=== PATIENT | female | born 1955 | race Caucasian/White ===

== ENCOUNTER 2017-04-23 18:13 | Inpatient (IN) ==
[2017-04-23] MEDS ORDERED: *HR* FentaNYL (PF) 100 MCG/2 ML VIAL IVP ONE ×2 (18:26→19:19)
[2017-04-23] MEDS ORDERED: MethylPREDNISolone 40 MG/ML VIAL IVP ONE (18:29)
--- NOTE | 2017-04-23 18:29 | Emergency Department Note ---
Disposition Clinical Impression: Hip pain Qualifiers: Laterality: right Qualified Code(s): M25.551 - Pain in right hip Hip fracture Qualifiers: Encounter type: initial encounter Fracture type: closed Laterality: right Qualified Code(s): S72.001A - Fracture of unspecified part of neck of right femur, initial encounter for closed fracture Disposition: Home, Self-Care Condition: Fair Referrals: Cipriano Walsh MD [Family Provider] - [facility] [Provider Group] Forms: ED Satisfaction Letter Time of Disposition: 19:15 General Adult HPI - General Chief complaint: ED Extremity Problem,Nontraumatic Stated complaint: right hip pain Time Seen by Provider: 04/23/17 18:20 Source: patient, EMS Mode of arrival: ambulatory Limitations: no limitations Nursing Notes Reviewed: Yes Vital Signs Reviewed: Yes - History of Present Illness HPI Narrative: 60-year-old female transferred evaluation of atraumatic right hip pain. Patient states she said chronic right hip pain over several months but has worsened acutely in the past 2-3 days. Patient states she has never been able to bear weight on her right hip over several months has had a repeat CAT scan obtained approximately a year ago. Patient notes pain is primarily in the inner hip worse with movement. Patient denies any radiation of pain down the lower leg. Patient denies any pain in the back does have some moderate pain on the lateral aspect of the right hip. Denies any other symptoms. No fevers or cough. No abdominal pain. No nausea vomiting. Patient been taking anti- inflammatories to help with the pain. Reports also chronic knee pain. Denies any history of autoimmune disease or steroid use. Pain Scale: 5 - Related Data Home Medications Medication Instructions Recorded Confirmed Buspirone HCl [Buspar] 10 mg PO BID PRN 04/23/17 04/23/17 Calcium Carb/Vitamin D3/Vit K1 1 each PO DAILY 04/23/17 04/23/17 [Calcium + D Soft Chewable Tab] Cholecalciferol (D-3) [Vitamin D] 1,000 unit PO DAILY 04/23/17 04/23/17 Estrogens, Conjugated [Premarin] 0.625 mg PO DAILY 04/23/17 04/23/17 Glucosamine/D3/Boswellia Vanesa 1 each PO BID 04/23/17 04/23/17 [Osteo Bi-Flex Tablet] Loratadine [Claritin] 10 mg PO DAILY 04/23/17 04/23/17 Losartan/Hydrochlorothiazide 1 each PO DAILY 04/23/17 04/23/17 [Hyzaar 100-12.5 Tablet] Meloxicam [Mobic] 15 mg PO DAILY PRN 04/23/17 04/23/17 Naproxen Sodium [Aleve] 440 mg PO BID 04/23/17 04/23/17 Paroxetine [Paxil] 30 mg PO DAILY 04/23/17 04/23/17 Potassium Chloride [K-Tab ER] 20 meq PO TID 04/23/17 04/23/17 Pregabalin [Lyrica] 100 mg PO TID 04/23/17 04/23/17 Allergies Allergy/AdvReac Type Severity Reaction Status Date / Time nitrofurantoin Allergy Anaphylaxis Verified 04/23/17 18:27 [From Macrobid] Penicillins [PCN] Allergy Anaphylaxis Verified 04/23/17 18:27 All systems ED: reviewed and negative except as stated. Constitutional: Reports: as per HPI. Denies: fever Eyes: Reports: as per HPI ENT ED: Reports: as per HPI Cardiovascular: Reports: as per HPI. Denies: chest pain Respiratory: Reports: as per HPI. Denies: cough Gastrointestinal: Reports: as per HPI Genitourinary: Reports: as per HPI. Denies: dysuria Musculoskeletal: Reports: as per HPI. Denies: back pain Integumentary: Reports: as per HPI Neurological: Reports: as per HPI. Denies: headache Psychiatric: Reports: as per HPI Endocrine: Reports: as per HPI Hematological/Lymphatic: Reports: as per HPI Allergic/Immunologic: Reports: as per HPI Past Medical History - Past Medical History Source: patient Medical history: Reports: hypertension Psychiatric history: Reports: anxiety, depression - Social History Smoking Status: Never smoker Smokeless Tobacco Status: No Alcohol use: Reports: none Drug use: Reports: none Physical Exam - General Limitations: no limitations General appearance: alert, in no apparent distress - Head Head exam: atraumatic, normocephalic, normal inspection - Eye Eye exam: Present: normal appearance, PERRL, EOMI - ENT ENT exam: normal exam, mucous membranes moist - Neck Neck exam: Present: normal inspection - Chest Chest inspection: Present: normal inspection - Respiratory Respiratory exam: Present: normal lung sounds bilaterally. Absent: respiratory distress - Cardiovascular Cardiovascular exam: Present: regular rate, normal rhythm - Abdominal Exam Abdominal exam: Present: soft, Non-Tender - Extremities Exam Extremities exam: Present: normal inspection - Expanded Lower Extremity Exam Hip/Pelvis exam: Present: normal inspection, tenderness (Along the anterior aspect as well as medial aspect of the right hip.). Absent: full ROM, swelling , abrasion, external rotation, internal rotation, shortening Upper leg exam: Present: normal inspection. Absent: tenderness Knee exam: Present: normal inspection. Absent: tenderness, swelling, abrasion Lower leg exam: Present: normal inspection Ankle exam: Present: normal inspection Foot/toe exam: Present: normal inspection Neurovascular/Tendon exam: Present: normal capillary refill. Absent: pulse deficit, motor deficit, sensory deficit - Back Exam Back exam: Present: normal inspection - Neurological Exam Neurological exam: Present: alert, oriented X3 - Skin Skin exam: Present: warm, dry, intact, normal color Course Course Narrative: Patient seen and examined. Patient's in no acute distress but does appear uncomfortable. Patient will get CT imaging of the hip as well as appropriate pain control. Disposition pending. - Reevaluation(s) Reevaluation #1: Patient seen and examined. Patient noted some relief of the pain was still notes persistent pain. We will give sub-social dose of ketamine for complete resolution. Awaiting CT images. Time: 19:14 Reevaluation #2: Radiologist interprets the findings of the right femoral neck fracture. Patient will get preoperative basic labs including EKG. Patient will be admitted to the hospital service with orthopedic consult. Patient is neurovascularly intact distal to the extremity. Time: 19:31 - Consultations Consultation #1: Spoke with orthopedics and made aware of the patient. We will admit to the hospitalist. Time: 19:37 Vital Signs Temperature 98.3 F 04/23/17 18:18 Pulse Rate 84 04/23/17 18:18 Respiratory Rate 16 04/23/17 18:18 Blood Pressure 170/101 04/23/17 18:18 O2 Sat by Pulse Oximetry 100 04/23/17 18:18 Temperature 98.3 F 04/23/17 18:18 Pulse Rate 84 04/23/17 18:18 Respiratory Rate 16 04/23/17 18:18 Blood Pressure 170/101 04/23/17 18:18 O2 Sat by Pulse Oximetry 100 04/23/17 18:18 Oxygen Delivery Oxygen Delivery Room Air Medical Decision Making - MDM Narrative Medical decision making narrative: Patient presents with atraumatic right hip pain. Patient initially received fentanyl as well as a CT of the pelvis. CT of pelvis did reveal a femoral neck fracture. Patient's neurovascular intact. Patient received several doses of fentanyl as well as ketamine. Patient received preoperative basic lab work as well as EKG. Patient case discussed with the orthopedics who recommend admit to the hospitalist. Patient will likely require operative intervention. Discussed case with the hospitalist who accepted the patient. - Lab Data Result diagrams: 04/23/17 19:34 04/23/17 19:34 Lab Results 04/23/17 04/23/17 04/23/17 Range/Units 19:34 19:34 19:34 WBC 8.8 (4.3-11.1) K/mcL RBC 4.39 (3.82-4.97) M/mcL Hgb 11.2 L (11.5-15.4) g/dL Hct 37.0 (35.3-44.9) % MCV 84.3 (83.0-100.0) fL MCH 25.5 L (28.0-33.3) pg MCHC 30.3 L (31.6-35.5) g/dL RDW 13.9 (11.5-14.5) % Plt Count 254 (140-400) K/mcL MPV 12.1 (9.4-12.4) fL Immature Gran % 0.3 (0-4) % Seg Neutrophils % 74.7 % Lymphocytes % 15.6 % Monocytes % 8.5 % Eosinophils % 0.6 % Basophils % 0.3 % Neutrophils # 6.6 (1.6-8.9) K/mcL Lymphocytes # 1.4 (0.6-4.6) K/mcL Monocytes # 0.8 (0.0-1.3) K/mcL Eosinophils # 0.1 (0.0-0.6) K/mcL Basophils # 0.0 (0.0-0.2) K/mcL Sodium 140 (136-145) mEq/L Potassium 3.5 (3.5-5.1) mEq/L Chloride 106 (98-107) mEq/L Carbon Dioxide 25 (23-29) mEq/L BUN 12 (8-23) mg/dL Creatinine 0.57 L (0.60-1.20) mg/dL Est GFR ( Amer) > 60 (> 60) Est GFR (Non-Af Amer) > 60 (> 60) BUN/Creatinine Ratio 21 (6-26) Glucose 104 (70-105) mg/dL Calculated Osmolality 290 (280-300) Calcium 9.0 (8.6-10.3) mg/dL Blood Type A POSITIVE - Radiology Data Radiology results reviewed: Yes I reviewed the patient's radiology results. Pelvis CT 04/23/17 18:25 IMPRESSION: Right femoral neck fracture D/ / Aden Forbes MD / Aden Forbes MD Interpreting Provider: Aden Forbes MD - EKG Data EKG #1 EKG attestation: Yes I reviewed and interpreted this EKG. EKG shows normal: sinus rhythm Rate: normal Rhythm: NSR [place]/QRS: normal T wave inversions noted in: aVR, v1 Interpretation: no acute changes, nonspecific ST-T wave changes S.B.AGina - S.B.AGina Situation: Demographics Background: Presenting Complaint Assessment: Vital Signs, Course and respsone to treatment Recommendation: Barrier(s) to disposition, Recommendation based on pending studies, treatments, or consults S.B.A.RDesi Report Given to: Dr. Seymour SGabyAGina Repor Time: 20:24 Attestation Statement - Attestation Attestation: I examined this patient and my medical decision-making was reviewed with the Resident Physician. I agree with the documented findings, disposition and treatment plan as described except to the extent set forth below. Patient presents to the ED with a chief complaint right hip pain. Patient states that having pain in his hip for over a year. She has had previous imaging on an seen an orthopedic who recommended a hip replacement. She did not want to have the surgery. She states the pain significantly worsened a couple days ago. She can no longer put weight on her leg. Denies any injury. Show with extreme tenderness on exam with any movement of the right leg. The leg is not shortened or rotated. Plan. We did a CT of her pelvis that shows a femoral neck fracture. We will check basic labs and EKG. Admit to hospitalist with orthopedic consult.
[2017-04-23] MEDS ORDERED: *HR* Ketamine 500 MG/5 ML MDV IVP ONE (19:13)
[2017-04-23] MEDS ORDERED: Ondansetron 4 MG/2 ML VIAL IVP ONE (19:17)
[2017-04-23] MEDS ORDERED: 0.9 % Sodium Chloride 1,000 ML IVC ONE (19:22)
[2017-04-23] MEDS ORDERED: KETAMINE IVP ONE (19:30)
[2017-04-23] MEDS ORDERED: SODIUM CHLORIDE 0.9% IVP ONE (19:30)
[2017-04-23 19:46] LABS: Basophils % 0.3 %; Eosinophils # 0.1 K/mcL (0.0-0.6); Eosinophils % 0.6 %; Hemoglobin 11.2 g/dL (11.5-15.4); Immature Granulocytes % 0.3 % (0-4); Lymphocytes # 1.4 K/mcL (0.6-4.6); Lymphocytes % 15.6 %; Mean Corpuscular HGB Conc 30.3 g/dL (31.6-35.5); Mean Corpuscular Hemoglobin 25.5 pg (28.0-33.3); Mean Corpuscular Volume 84.3 fL (83.0-100.0); Mean Platelet Volume 12.1 fL (9.4-12.4); Monocytes # 0.8 K/mcL (0.0-1.3); Monocytes % 8.5 %; Neutrophils # 6.6 K/mcL (1.6-8.9); Platelet Count 254 K/mcL (140-400); Red Blood Count 4.39 M/mcL (3.82-4.97); Red Cell Distribution Width 13.9 % (11.5-14.5); Segmented Neutrophils % 74.7 %
[2017-04-23 20:01] LABS: BUN/Creatinine Ratio 21 (6-26); Blood Urea Nitrogen 12 mg/dL (8-23); Carbon Dioxide 25 mEq/L (23-29); Chloride 106 mEq/L (98-107); Glucose 104 mg/dL (70-105); Osmolality,Calculated 290 (280-300); Potassium 3.5 mEq/L (3.5-5.1); Sodium 140 mEq/L (136-145); eGFR For African Americans > 60 (> 60); eGFR For Non-African Americans > 60 (> 60)
--- NOTE | 2017-04-23 22:34 | Internal Med History&Physical ---
Date of Encounter: 04/23/17 Time of Encounter: 22:00 Assessment and Plan (1) Transverse fracture of shaft of femur Current visit: Yes Status: Acute -In the ER, CT of the pelvis showed transverse fracture of the mid femoral neck with a few mm distraction; the hip is otherwise in anatomic alignment and pelvic ring is otherwise intact. -Orthopedic surgery consult and appreciate recommendations -Pain control with IV Toradol Qualifiers: Encounter type: initial encounter Qualified Code(s): S72.324A - Nondisplaced transverse fracture of shaft of right femur, initial encounter for closed fracture (2) HTN (hypertension) Current visit: Yes Status: Acute -Continue home dose of Hyzaar Qualifiers: Hypertension type: essential hypertension Qualified Code(s): I10 - Essential (primary) hypertension (3) Mood disorder Current visit: Yes Status: Acute -Continue home medications (4) DVT prophylaxis Current visit: Yes Status: Acute -SCDs Internal Medicine - H&P: HPI Chief complaint: Right groin/leg pain Admitted From: Home Plans for Post Hospital Care: Home History of present illness: Patient is a 61-year-old female with past medical history significant for hypertension and mood disorder who presents to the ER on 04/23/17 due to right groin pain. Patient characterizes pain as sharp and located in her right groin which radiates down her right leg with a severity of 10 out of 10 that is constant. Patient reports that pain is worse with movement and somewhat better with rest. Patient was concerned and decided to come into the ER for evaluation. In the ER, CT of the pelvis showed transverse fracture of the mid femoral neck with a few mm distraction; the hip is otherwise in anatomic alignment and pelvic ring is otherwise intact. Orthopedic was consulted from the ER and patient will be admitted to the medical surgical floor for further management. Past Med Surg Social Fam HX - Past Medical History Medical history: hypertension Psychiatric history: anxiety, depression - Past Surgical History Surgical History: appendectomy, DIANA/BSO - Social History Smoking Status: Never smoker Smokeless Tobacco Status: No Alcohol use: none Drug use: none - Family History Mother Living Status: Age at : 84 Cause of : pneumonia Father Living Status: Age at : 85 Cause of : chf Hx Family Cardiac Disorders: Yes Internal Medicine - H&P: Meds Buspirone HCl [Buspar] 10 mg PO BID PRN 04/23/17 [History] Calcium Carb/Vitamin D3/Vit K1 [Calcium + D Soft Chewable Tab] 1 each PO DAILY 04/23/17 [History] Cholecalciferol (D-3) [Vitamin D] 1,000 unit PO DAILY 04/23/17 [History] Estrogens, Conjugated [Premarin] 0.625 mg PO DAILY 04/23/17 [History] Glucosamine/D3/Boswellia Vanesa [Osteo Bi-Flex Tablet] 1 each PO BID 04/23/17 [ History] Loratadine [Claritin] 10 mg PO DAILY 04/23/17 [History] Losartan/Hydrochlorothiazide [Hyzaar 100-12.5 Tablet] 1 each PO DAILY 04/23/17 [ History] Meloxicam [Mobic] 15 mg PO DAILY 04/23/17 [History] Paroxetine [Paxil] 30 mg PO HS 04/23/17 [History] Potassium Chloride [K-Tab ER] 20 meq PO TID 04/23/17 [History] Pregabalin [Lyrica] 100 mg PO TID 04/23/17 [History] 3 Allergy/AdvReac Type Severity Reaction Status Date / Time nitrofurantoin Allergy Anaphylaxis Verified 04/23/17 18:27 [From Macrobid] Penicillins [PCN] Allergy Anaphylaxis Verified 04/23/17 18:27 All Systems PM: A 10-system review of systems was performed and is negative for pertinent findings except as documented above in the HPI. - Constitutional Vitals: Temp Pulse Resp BP Pulse Ox 99 F 101 14 168/107 95 04/23/17 22:03 04/23/17 22:03 04/23/17 22:03 04/23/17 22:03 04/23/17 22:03 General appearance: Present: A&O X 3, no acute distress, answers questions appropriately - Eye Eye exam: Present: normal appearance - Respiratory Respiratory exam: Present: CTAB. Absent: accessory muscle use, rales, rhonchi, wheezes - Cardiovascular Cardiovascular exam: Present: RRR, +S1, +S2. Absent: diastolic murmur, gallop, rubs, systolic murmur - GI/Abdominal GI/Abdominal exam: Present: normal bowel sounds, soft, no peritoneal signs. Absent: distended, tenderness - Extremities Exam Extremities exam: Absent: pedal edema - Neurological Exam Neurological exam: Present: oriented X3 - Psychiatric Psychiatric exam: Present: normal mood - Skin Skin exam: Present: normal color Internal Med - H&P Results - Labs CBC & Chem 7: 04/23/17 19:34 04/23/17 19:34
[2017-04-23] MEDS ORDERED: Naloxone 0.4 MG/ML INJ IVP PRN (22:41)
[2017-04-23] MEDS ORDERED: 0.9 % Sodium Chloride 1,000 ML IVC SCH (22:45)
[2017-04-24] MEDS ORDERED: Melatonin 3 MG TABLET PO ONE
[2017-04-24] MEDS: Ketorolac 30 MG/ML VIAL IVP SCH ×3 (00:12→14:05)
[2017-04-24 06:16] LABS: Basophils % 0.1 %; Hematocrit 34.8 % (35.3-44.9); Hemoglobin 10.5 g/dL (11.5-15.4); Immature Granulocytes % 0.3 % (0-4); Lymphocytes # 1.2 K/mcL (0.6-4.6); Lymphocytes % 16.6 %; Mean Corpuscular HGB Conc 30.2 g/dL (31.6-35.5); Mean Corpuscular Hemoglobin 25.7 pg (28.0-33.3); Mean Corpuscular Volume 85.1 fL (83.0-100.0); Mean Platelet Volume 11.9 fL (9.4-12.4); Monocytes # 0.4 K/mcL (0.0-1.3); Monocytes % 5.2 %; Neutrophils # 5.5 K/mcL (1.6-8.9); Platelet Count 240 K/mcL (140-400); Red Blood Count 4.09 M/mcL (3.82-4.97); Red Cell Distribution Width 13.8 % (11.5-14.5); Segmented Neutrophils % 77.8 %
[2017-04-24 06:21] LABS: INR 1.2; Prothrombin Time 12.6 Seconds (9.4-12.1)
[2017-04-24 06:30] LABS: BUN/Creatinine Ratio 24 (6-26); Blood Urea Nitrogen 12 mg/dL (8-23); Calcium 8.6 mg/dL (8.6-10.3); Carbon Dioxide 24 mEq/L (23-29); Chloride 108 mEq/L (98-107); Glucose 117 mg/dL (70-105); Osmolality,Calculated 289 (280-300); Potassium 3.4 mEq/L (3.5-5.1); Sodium 139 mEq/L (136-145); eGFR For African Americans > 60 (> 60); eGFR For Non-African Americans > 60 (> 60)
[2017-04-24] MEDS ORDERED: Potassium Chloride 40 MEQ, Lidocaine 1% 2 ML in D5% in Water 500 ML IVPB ONE (07:30)
--- NOTE | 2017-04-24 07:37 | Internal Med Progress Note ---
Date of Encounter: 04/24/17 Time of Encounter: 07:31 - Assessment and plan (1) Transverse fracture of shaft of femur Current Visit: Yes Status: Acute Assessment and plan: c/w pain control. c/s orthopedics. NPO. PT/OT after surgery. Ok to proceed to OR with no further testing. Qualifiers: Encounter type: initial encounter Qualified Code(s): S72.324A - Nondisplaced transverse fracture of shaft of right femur, initial encounter for closed fracture (2) HTN (hypertension) Current Visit: Yes Status: Acute Assessment and plan: Continue with losartan Qualifiers: Hypertension type: essential hypertension Qualified Code(s): I10 - Essential (primary) hypertension (3) Mood disorder Current Visit: Yes Status: Acute Assessment and plan: Continue with BuSpar (4) DVT prophylaxis Current Visit: Yes Status: Acute Assessment and plan: heparin SQ - Subjective Interval history: Patient seen and examined. Admitted with a right femur fracture. She says the pain is well-controlled. She does not remember exactly how it happened. She denies a fall or trauma. Significant afebrile. Lives with her and at baseline is independent of daily living activities. Denies any cardiac history. - Constitutional Vitals: Temp Pulse Resp BP Pulse Ox 97.8 F 76 16 150/79 95 04/24/17 06:01 04/24/17 06:01 04/24/17 06:01 04/24/17 06:01 04/24/17 06:01 General appearance: Present: A&O X 3, no acute distress, answers questions appropriately Exam: GEN: NAD CVS: RRR. S1, S2, No m/r/g RESP: CTAB ABD: Soft, NT, ND, +BS EXT: No edema. 2+ DP. No rashes NEURO: Nonfocal Internal Medicine: Result - Labs CBC & Chem 7: 04/24/17 06:06 04/24/17 06:06 Labs: Short CBC 04/24/17 Range/Units 06:06 WBC 7.1 (4.3-11.1) K/mcL Hgb 10.5 L (11.5-15.4) g/dL Hct 34.8 L (35.3-44.9) % Plt Count 240 (140-400) K/mcL Neutrophils # 5.5 (1.6-8.9) K/mcL BMP 04/24/17 06:06 Sodium 139 Potassium 3.4 L Chloride 108 H Carbon Dioxide 24 BUN 12 Creatinine 0.51 L Glucose 117 H Calcium 8.6 - ABG Interpretation ABG results: PT/INR, D-dimer PT 12.6 Seconds (9.4-12.1) H 04/24/17 06:06 Consult Discharge Plan - Plan Referrals: NONE,PCP [Primary Care Provider] - Cipriano Walsh MD [Family Provider] -
[2017-04-24] MEDS: *HR* Heparin 5,000 UNIT/ML VIAL SQ SCH ×2 (07:40→14:05)
[2017-04-24] MEDS ORDERED: Cholecalciferol (D-3) 1,000 UNIT TABLET PO SCH (09:00)
[2017-04-24] MEDS ORDERED: Pregabalin 50 MG CAPSULE PO SCH (09:00)
[2017-04-24] MEDS ORDERED: hydroCHLOROthiazide 25 MG TABLET PO SCH (09:00)
--- NOTE | 2017-04-24 10:31 | Orthopedic Consult Note ---
Date of Encounter: 04/24/17 Time of Encounter: 09:00 Assessment and Plan (1) Closed displaced fracture of right femoral neck Current Visit: Yes Status: Acute The patient will be scheduled for a right hip hemiarthroplasty. They proceeded details. Discussed the patient. The risks, benefits and alternatives were discussed. Informed consent was obtained. History of Present Illness Chief complaint: Right hip pain HPI: Ms. Mitchell is a 61 year old female with history of bilateral hip and knee pain for several months now. The patient states that she was diagnosed with a stress fracture right hip recently. The patient was simply ambulating when she felt sharp pain of the right hip that progressed over the past several days. Patient came to mention room, CT scan showing she has a mildly displaced right hip femoral neck fracture. There was no reported fall, no loss of consciousness. Past Med Surg Social Fam HX - Past Medical History Medical history: hypertension Psychiatric history: anxiety, depression - Past Surgical History Surgical History: appendectomy, DIANA/BSO - Social History Smoking Status: Never smoker Smokeless Tobacco Status: No Alcohol use: none Drug use: none - Family History Mother Living Status: Age at : 84 Cause of : pneumonia Father Living Status: Age at : 85 Cause of : chf Hx Family Cardiac Disorders: Yes Medications and Allergies Buspirone HCl [Buspar] 10 mg PO BID PRN 04/23/17 [History] Calcium Carb/Vitamin D3/Vit K1 [Calcium + D Soft Chewable Tab] 1 each PO DAILY 04/23/17 [History] Cholecalciferol (D-3) [Vitamin D] 1,000 unit PO DAILY 04/23/17 [History] Estrogens, Conjugated [Premarin] 0.625 mg PO DAILY 04/23/17 [History] Glucosamine/D3/Boswellia Vanesa [Osteo Bi-Flex Tablet] 1 each PO BID 04/23/17 [ History] Loratadine [Claritin] 10 mg PO DAILY 04/23/17 [History] Losartan/Hydrochlorothiazide [Hyzaar 100-12.5 Tablet] 1 each PO DAILY 04/23/17 [ History] Meloxicam [Mobic] 15 mg PO DAILY 04/23/17 [History] Paroxetine [Paxil] 30 mg PO HS 04/23/17 [History] Potassium Chloride [K-Tab ER] 20 meq PO TID 04/23/17 [History] Pregabalin [Lyrica] 100 mg PO TID 04/23/17 [History] 3 Allergy/AdvReac Type Severity Reaction Status Date / Time nitrofurantoin Allergy Anaphylaxis Verified 04/23/17 18:27 [From Macrobid] Penicillins [PCN] Allergy Anaphylaxis Verified 04/23/17 18:27 All Systems Reviewed: A 10-system review of systems was performed and is negative for pertinent findings except as documented above in the HPI. - Musculoskeletal Musculoskeletal: abnormal gait, radiating pain into limb Physical Exam - Constitutional Vitals: Temp Pulse Resp BP Pulse Ox 97.8 F 76 16 150/79 95 04/24/17 06:01 04/24/17 06:01 04/24/17 06:01 04/24/17 06:01 04/24/17 06:01 General appearance IM: A&O X 3, pleasant, no acute distress, obese Exam: Head no cephalic, atraumatic Neck supple, nontender Normal motion of bilateral upper extremities Right extremity: Positive groin tenderness, nondistended, good motion of foot, grossly neurovascularly intact Left lower extremity: No groin tenderness, normal pain-free range of motion, grossly neurovascularly intact, calf is soft nontender SCDs in place Results - Labs Result Diagrams: 04/24/17 06:06 04/24/17 06:06 Labs: Abnormal lab results Hgb 10.5 g/dL (11.5-15.4) L 04/24/17 06:06 Hct 34.8 % (35.3-44.9) L 04/24/17 06:06 MCH 25.7 pg (28.0-33.3) L 04/24/17 06:06 MCHC 30.2 g/dL (31.6-35.5) L 04/24/17 06:06 PT 12.6 Seconds (9.4-12.1) H 04/24/17 06:06 Potassium 3.4 mEq/L (3.5-5.1) L 04/24/17 06:06 Chloride 108 mEq/L (98-107) H 04/24/17 06:06 Creatinine 0.51 mg/dL (0.60-1.20) L 04/24/17 06:06 Glucose 117 mg/dL (70-105) H 04/24/17 06:06 H & H 04/24/17 Range/Units 06:06 Hgb 10.5 L (11.5-15.4) g/dL Hct 34.8 L (35.3-44.9) % All other labs normal. - Diagnostic results Hip CT: image reviewed (Mildly displaced right hip femoral neck fracture, slight varus) Consult Discharge Plan - Plan Referrals: Cipriano Walsh MD [Family Provider] - NONE,PCP [Primary Care Provider] -
[2017-04-24] MEDS ORDERED: Acetaminophen IV 1,000 MG/100 ML INFUS..BTL ONE (12:14)
[2017-04-24] MEDS ORDERED: Tetracaine/PF 20 MG/2 ML AMPUL ONE (12:15)
--- NOTE | 2017-04-24 12:49 | Anesthesia Evaluation PreOp ---
Date of Encounter: 04/24/17 Time of Encounter: 14:00 - Past History Planned Operation: R-Deandre Hip Cardiac History: HTN (maintained on Hyzaar) Pulmonary History: Denies Any Significant HX, ED Dx (Non-compliant w/ CPAP use) PRINT PRESS OPERATOR History: Other (Anxiety/depression maintained on Paxil, Buspar, Lyrica) Anesthesia History: No Prior Anesthetic Complications (Hyster, Appy), Past Anesthesia Alcohol Use: none Drug use: none Medications and Allergies Buspirone HCl [Buspar] 10 mg PO BID PRN 04/23/17 [History] Calcium Carb/Vitamin D3/Vit K1 [Calcium + D Soft Chewable Tab] 1 each PO DAILY 04/23/17 [History] Cholecalciferol (D-3) [Vitamin D] 1,000 unit PO DAILY 04/23/17 [History] Estrogens, Conjugated [Premarin] 0.625 mg PO DAILY 04/23/17 [History] Glucosamine/D3/Boswellia Vanesa [Osteo Bi-Flex Tablet] 1 each PO BID 04/23/17 [ History] Loratadine [Claritin] 10 mg PO DAILY 04/23/17 [History] Losartan/Hydrochlorothiazide [Hyzaar 100-12.5 Tablet] 1 each PO DAILY 04/23/17 [ History] Meloxicam [Mobic] 15 mg PO DAILY 04/23/17 [History] Paroxetine [Paxil] 30 mg PO HS 04/23/17 [History] Potassium Chloride [K-Tab ER] 20 meq PO TID 04/23/17 [History] Pregabalin [Lyrica] 100 mg PO TID 04/23/17 [History] 3 Allergy/AdvReac Type Severity Reaction Status Date / Time nitrofurantoin Allergy Anaphylaxis Verified 04/23/17 18:27 [From Macrobid] Penicillins [PCN] Allergy Anaphylaxis Verified 04/23/17 18:27 - Meds/Allergy Pre-op Review Medications Reviewed: Yes Allergies Reviewed: Yes Beta Blockers on Current Med List: No Anesthesia Results - Labs 04/24/17 06:06 04/24/17 06:06 Laboratory Results WBC 7.1 K/mcL (4.3-11.1) 04/24/17 06:06 RBC 4.09 M/mcL (3.82-4.97) 04/24/17 06:06 Hgb 10.5 g/dL (11.5-15.4) L 04/24/17 06:06 Hct 34.8 % (35.3-44.9) L 04/24/17 06:06 MCV 85.1 fL (83.0-100.0) 04/24/17 06:06 MCH 25.7 pg (28.0-33.3) L 04/24/17 06:06 MCHC 30.2 g/dL (31.6-35.5) L 04/24/17 06:06 RDW 13.8 % (11.5-14.5) 04/24/17 06:06 Plt Count 240 K/mcL (140-400) 04/24/17 06:06 MPV 11.9 fL (9.4-12.4) 04/24/17 06:06 Immature Gran % 0.3 % (0-4) 04/24/17 06:06 Seg Neutrophils % 77.8 % 04/24/17 06:06 Lymphocytes % 16.6 % 04/24/17 06:06 Monocytes % 5.2 % 04/24/17 06:06 Eosinophils % 0.0 % 04/24/17 06:06 Basophils % 0.1 % 04/24/17 06:06 Neutrophils # 5.5 K/mcL (1.6-8.9) 04/24/17 06:06 Lymphocytes # 1.2 K/mcL (0.6-4.6) 04/24/17 06:06 Monocytes # 0.4 K/mcL (0.0-1.3) 04/24/17 06:06 Eosinophils # 0.0 K/mcL (0.0-0.6) 04/24/17 06:06 Basophils # 0.0 K/mcL (0.0-0.2) 04/24/17 06:06 PT 12.6 Seconds (9.4-12.1) H 04/24/17 06:06 INR 1.2 04/24/17 06:06 Sodium 139 mEq/L (136-145) 04/24/17 06:06 Potassium 3.4 mEq/L (3.5-5.1) L 04/24/17 06:06 Chloride 108 mEq/L (98-107) H 04/24/17 06:06 Carbon Dioxide 24 mEq/L (23-29) 04/24/17 06:06 BUN 12 mg/dL (8-23) 04/24/17 06:06 Creatinine 0.51 mg/dL (0.60-1.20) L 04/24/17 06:06 Est GFR ( Amer) > 60 (> 60) 04/24/17 06:06 Est GFR (Non-Af Amer) > 60 (> 60) 04/24/17 06:06 BUN/Creatinine Ratio 24 (6-26) 04/24/17 06:06 Glucose 117 mg/dL (70-105) H 04/24/17 06:06 Calculated Osmolality 289 (280-300) 04/24/17 06:06 Calcium 8.6 mg/dL (8.6-10.3) 04/24/17 06:06 Blood Type A POSITIVE 04/23/17 19:34 Antibody Screen NEGATIVE 04/23/17 19:[address] 04/23/17 18:25 IMPRESSION: Right femoral neck fracture D/ / Aden Forbes MD / Aden Forbes MD Interpreting Provider: Aden Forbes MD Anesthesia Exam Vital Signs Temp Pulse Resp BP Pulse Ox 04/24/17 10:48 98.4 F 92 16 155/90 96 04/24/17 06:01 97.8 F 76 16 150/79 95 04/24/17 01:40 98.1 F 83 14 124/73 92 04/23/17 22:03 99 F 101 14 168/107 95 04/23/17 20:47 16 155/101 04/23/17 18:18 98.3 F 84 16 170/101 100 Intake and Output 04/23/17 04/24/17 04/24/17 23:59 07:59 15:59 Intake Total 1100.2 / 1100.2 Output Total 600 / 600 Balance 1100.2 / 1100.2 -600 / -600 Intake: IV Fluids 1100.2 / 1100.2 0.9 % Sodium Chloride 1,000 ML 1000 / 1000 @ 3750 mls/hr IVC .Q16M ONE Rx# :[id number] Ketamine 20 MG In 0.9 % Sodium 100.2 / 100.2 Chloride 100 ML @ 240.48 mls/hr IVP ONCE ONE Rx#:[id number] Output: Catheter 600 / 600 Other: Weight 97.522 kg Height: 5'5" Weight: 215# BMI = 36 NPO (# of Hours): MNOc - HEENT Pupil (Motor): Pupils equal, EOMI Mallampati: II Teeth: Normal Oral Opening: Greater than 3 - PRINT PRESS OPERATOR LOC: Oriented PRINT PRESS OPERATOR Motor: Normal RUE, Normal LUE, Normal LLE, Normal Face, Deficit RLE PRINT PRESS OPERATOR Sensory: Normal: RUE, LUE, LLE, Face, Deficit: RLE - Cardiac Rhythm: Regular Murmur: None - Pulmonary Breath Sounds: bilateral Clear Respiratory Effort: Symmetrical Anesthesia Assess/Plan ASA Score: 3 (ED, obesity, HTN, Anxiety/depression) Modified Diana Scale for Level of Consciousness: Cooperative, oriented, and tranquil Anesthetic Plan: Regional (Spinal), MAC Monitoring Plan: Standard Monitors Recovery Plan: PACU Anes Supervising Prov Stmt: Pt seen/evalutaed, R&B discussed,questions answered and consent obtained. Butch Avila MD
[2017-04-24] MEDS ORDERED: Propofol 500 MG/50 ML INFUS..BTL ONE (12:54)
[2017-04-24] MEDS ORDERED: *HR* Midazolam HCl 2 MG/2 ML VIAL ONE (12:54)
[2017-04-24] MEDS ORDERED: Ethanol\\Acetic Acid\\Na Ace\\Ben 1,000 ML IRRIG.SOLN IR ONE (13:51)
[2017-04-24] MEDS ORDERED: Clindamycin 900 MG/50 ML 900 MG/50 ML IV.SOLN IVPB ONE ×2 (14:11→14:16)
[2017-04-24] MEDS ORDERED: *HR* Magnesium Sulfate 1 GM/2 ML VIAL ONE (15:15)
[2017-04-24] MEDS ORDERED: Dexamethasone 4 MG/ML VIAL ONE (16:26)
[2017-04-24] MEDS ORDERED: *HR* FentaNYL (PF) 100 MCG/2 ML VIAL ONE (16:26)
[2017-04-24] MEDS ORDERED: Ondansetron 4 MG/2 ML VIAL ONE (16:26)
--- NOTE | 2017-04-24 16:31 | Anesthesia Procedures ---
Date of Encounter: 04/24/17 Time of Encounter: 14:35 Procedures: Anesthesia - Epidural/Spinal Patient ID/Chart reviewed: Yes Patient examined: Yes Supplemental Oxygen: Mask Supplemental Oxygen Rate (L/min): 8 Sedation: Versed (mg): 2 Sedation: Fentanyl (mcg): 100 (NOT fentanyl - 100mg Ketamine) Site Prep: Aseptic Technique (30), Povidone-Iodine 1% Patient position: left lateral decubitus Local Anesthetic: Lidocaine 1% Amount of Local Anesthetic used: 30 (mg) Interspace Used: L2-L3 Blood: No CSF: Yes Paresthesia: No Spinal Needle Gauge: 25 Spinal Dose: 12mg Tetracaine [1.2mL] + 200mcg Duramorph Vitals + FHT's: See anesthesia record Anes Supervising Prov Stmt: Sterile P&D. Pt LLD position. Landmarks identified. 3cc x 1% Lido local. 25G Pencar via introducer. Technically challenging SAB re: pt body habitus, deep vertebral cleft and pt in LLD . + CSF. 1.2mL Tetracaine + 200mcg duramorph delivered after good birfringent swirl noted. Pt tolerated procedure well but w/ prolonged block set up. Decision to convert to general Anesthetic w/ #4 iGel LMA. NO immediate complications - MD Austin
[2017-04-24] MEDS ORDERED: *HR* OxyCODONE Immed Rel 5 MG TABLET PO PRN ×2 (16:53→18:08)
[2017-04-24] MEDS ORDERED: *HR* HYDROmorphone 2 MG TABLET PO PRN (16:53)
[2017-04-24] MEDS ORDERED: *HR* HYDROcodone/Acet 7.5/325 mg TABLET PO PRN (16:53)
[2017-04-24] MEDS ORDERED: MORPHINE SUL Oral CONC 10 MG/0.5 ML ORAL.SYG SL PRN (16:53)
[2017-04-24] MEDS ORDERED: Ketorolac 30 MG/ML VIAL ONE (17:05)
--- NOTE | 2017-04-24 17:45 | Operative Note ---
Date of procedure: 04/24/17 Pre-op diagnosis: Right hip femoral neck fracture closed, displaced Post-op diagnosis: same Procedure: Right hip hemiarthroplasty Implants: Biomet echo system with bipolar head Anesthesia: arjun [place]ENTON Surgeon: Lizandro Neely Was there an sales assistant displays present: No Estimated blood loss (cc): 100 Specimen: Sent to pathology Condition: stable Disposition: PACU Procedure in Detail: The patient received IV antibiotics in the holding area. She was brought to the operating room, sign in was performed. She was then transferred to the OR table in supine position. The patient underwent a spinal. The patient was positioned in the left lateral decubitus position, supported by pelvic supports. Bony prominences of the left lower extremity were well padded. Patient still had some resistance to motion, to the right lower extremity, she underwent general anesthesia with an LMA. The right lower extremity was then prepped and draped in usual sterile fashion. A timeout was performed. The level of the greater trochanter was palpated, a 10-12 cm curvilinear posterior incision was made, followed by Bovie dissection. The hip abductor was sharply split in line with its fibers with a curved Oliva scissors, incising the fascia over the gluteus kamilla also. The Charnley retractors were then positioned, making sure all not to go too deeply, to protect the sciatic nerve. The bursa over the greater trochanter was excised with Bovie electrocautery. The left hip was then internally rotated, putting the short external rotators on stretch. These were taken down from the insertion point with the Bovie cautery, starting from less of a trochanter and going approximately to the femoral neck. The capsule along the posterior femoral neck and head was then T' ed, giving exposure to the fractured femoral head/neck. The head was then removed with a power corkscrew, and cutting the ligamentum teres. The head was measured and a size 45 mm diameter was chosen. The acetabulum was washed out of any bone fragments, and a trial head was placed giving a good fit. Next, the exposed fractured femoral neck was cleaned up with a rongeur, a kick boxer was then used to remove the lateral bone. The canal finder was then inserted. We then started broaching with a press-fit broaches from the Nicole Biomet echo tray. Starting with a press-fit 7, and moving up to a press-fit 8, keeping the appropriate anteversion of approximately 20 degrees. Broaching continued until press-fit 11. The trial stem was well fixed with no toggling. The broach was then removed. The canal was irrigated out and suctioned. The Nicole Biomet Echo press-fit stem was then opened, using a lateralized 130 degree neck angle and a size 11 pressfit stem, the implant was tapped in place, making sure to keep the correct anteversion. Once well positioned, we trialed with a 45 mm diameter trial head, and a -3 neck length. Unable to reduce the hip. I then trialed with a -6 mm neck length. The leg lengths felt fairly equal, the patient had mild tightness and extension of the right lower extremity , is able to flex the hip, adduct, and internally rotated up to 60 degrees before the hip started subluxing out. The trial components removed. The acetabulum was copiously irrigated with normal saline once again making sure it was well cleaned out. Next the 45 mm bipolar head was opened with a 28 mm internal head with -6 mm neck length. This assembled and tapped in place. The hip was reduced, and stability was checked once again. We had good stability. The hip joint was then irrigated with Bactisure, followed by normal saline. The capsule was then closed with 2-0 FiberWire figure of 8 sutures. The leg was placed on Oliva stand, and the short external rotators were reattached to the bone using the FiberWire. There was some mild oozing coming from the deep soft tissue. The Bovie electrocautery was used to try and stop the bleeding, however patient's leg twitched. This was left alone. The tensor fascia along with the gluteus fascia was closed with # 2 Strattafix PDS suture. Once again irrigating the wound with pulse lavage. The deep fat layer was closed with 0 Vicryl, subcutaneous tissues with 2-0 Vicryl simple sutures, and finally the skin was closed with Zipline system. Sterile dressings were applied. A hip abduction wedge was in place between the patient's legs. She was then rolled over into supine position and transferred back onto the hospital bed where she was extubated and taken to the recovery room in stable condition.
[2017-04-24] MEDS ORDERED: Clindamycin 900 MG/50 ML 900 MG/50 ML IV.SOLN IVPB SCH (18:08)
[2017-04-24] MEDS ORDERED: Sennosides 8.6 MG TABLET PO PRN (18:08)
[2017-04-24] MEDS ORDERED: D5% in 0.45% NACL 1,000 ML IVC SCH (18:08)
[2017-04-24] MEDS ORDERED: Naloxone 0.4 MG/ML INJ IVP PRN (18:08)
[2017-04-24] MEDS ORDERED: Acetaminophen 325 MG TABLET PO PRN (18:08)
[2017-04-24] MEDS ORDERED: Ondansetron 4 MG/2 ML VIAL IVP PRN (18:08)
[2017-04-24] MEDS ORDERED: Ringers Solution, Lactated 1,000 ML IVC SCH (18:08)
[2017-04-24] MEDS ORDERED: MOM Conc 10 ML UD.LIQ PO PRN (18:08)
[2017-04-24] MEDS: Ascorbic Acid 500 MG TABLET PO SCH (19:48)
[2017-04-24] MEDS: Pregabalin 50 MG CAPSULE PO SCH (19:49)
[2017-04-24] MEDS: Clindamycin 900 MG/50 ML 900 MG/50 ML IV.SOLN IVPB SCH (22:26)
[2017-04-25 04:33] LABS: Basophils % 0.1 %; Hematocrit 30.8 % (35.3-44.9); Hemoglobin 9.2 g/dL (11.5-15.4); Immature Granulocytes % 0.4 % (0-4); Lymphocytes # 1.1 K/mcL (0.6-4.6); Lymphocytes % 13.2 %; Mean Corpuscular HGB Conc 29.9 g/dL (31.6-35.5); Mean Corpuscular Hemoglobin 25.3 pg (28.0-33.3); Mean Corpuscular Volume 84.8 fL (83.0-100.0); Mean Platelet Volume 12.1 fL (9.4-12.4); Monocytes # 0.9 K/mcL (0.0-1.3); Monocytes % 10.5 %; Neutrophils # 6.5 K/mcL (1.6-8.9); Nucleated Red Blood Cells 0.2 /100 WBC (0); Platelet Count 224 K/mcL (140-400); Red Blood Count 3.63 M/mcL (3.82-4.97); Red Cell Distribution Width 13.9 % (11.5-14.5); Segmented Neutrophils % 75.8 %
[2017-04-25 04:53] LABS: BUN/Creatinine Ratio 20 (6-26); Blood Urea Nitrogen 13 mg/dL (8-23); Calcium 7.9 mg/dL (8.6-10.3); Carbon Dioxide 27 mEq/L (23-29); Chloride 108 mEq/L (98-107); Glucose 112 mg/dL (70-105); Osmolality,Calculated 287 (280-300); Potassium 4.1 mEq/L (3.5-5.1); Sodium 138 mEq/L (136-145); eGFR For African Americans > 60 (> 60); eGFR For Non-African Americans > 60 (> 60)
[2017-04-25] MEDS: Clindamycin 900 MG/50 ML 900 MG/50 ML IV.SOLN IVPB SCH (06:07)
[2017-04-25] MEDS ORDERED: 0.9 % Sodium Chloride 500 ML IVC ONE (07:33)
[2017-04-25] MEDS: Ascorbic Acid 500 MG TABLET PO SCH ×2 (09:42→16:12)
[2017-04-25] MEDS: Pregabalin 50 MG CAPSULE PO SCH ×3 (09:42→21:53)
[2017-04-25] MEDS: Cholecalciferol (D-3) 1,000 UNIT TABLET PO SCH (09:42)
[2017-04-25] MEDS: hydroCHLOROthiazide 25 MG TABLET PO SCH (09:43)
[2017-04-25] MEDS: Multivit/Ca/Min/Fe/FA 1 TAB TABLET PO SCH (09:43)
--- NOTE | 2017-04-25 11:22 | Internal Med Progress Note ---
Date of Encounter: 04/25/17 Time of Encounter: 07:15 - Assessment and plan (1) Tachycardia Current Visit: Yes Status: Acute Assessment and plan: possibly driven by pain. We will give the patient 500 mL bolus for now and see if that improves it. There is some mild elevation in her creatinine and could be dehydration. (2) Transverse fracture of shaft of femur Current Visit: Yes Status: Acute Assessment and plan: c/w pain control. Orthopedics is following. Status post right hip hemiarthroplasty. Postoperative day #1. Continue physical therapy. Possible placement early next week. Qualifiers: Encounter type: initial encounter Qualified Code(s): S72.324A - Nondisplaced transverse fracture of shaft of right femur, initial encounter for closed fracture (3) HTN (hypertension) Current Visit: Yes Status: Acute Assessment and plan: Continue with losartan Qualifiers: Hypertension type: essential hypertension Qualified Code(s): I10 - Essential (primary) hypertension (4) Mood disorder Current Visit: Yes Status: Acute Assessment and plan: Continue with BuSpar (5) DVT prophylaxis Current Visit: Yes Status: Acute Assessment and plan: Lovenox twice a day - Subjective Interval history: Patient seen and examined. Admitted with a right femur fracture. She is status post right hip hemiarthroplasty on 04/24. Heart rate is around 105 while I was in the room. Working with physical therapy early this morning. She says the pain is somewhat controlled. She does not remember exactly how it happened. She denies a fall or trauma. Significant afebrile. Lives with her and at baseline is independent of daily living activities. Denies any cardiac history. - Constitutional Vitals: Temp Pulse Resp BP Pulse Ox 98.7 F 88 16 118/80 96 04/25/17 07:05 04/25/17 07:05 04/25/17 07:05 04/25/17 07:05 04/25/17 07:05 General appearance: Present: A&O X 3, no acute distress, answers questions appropriately Exam: GEN: NAD CVS: RRR. S1, S2, No m/r/g RESP: CTAB ABD: Soft, NT, ND, +BS EXT: No edema. 2+ DP. No rashes NEURO: Nonfocal Internal Medicine: Result - Labs CBC & Chem 7: 04/25/17 03:57 04/25/17 03:57 Labs: Short CBC 04/25/17 Range/Units 03:57 WBC 8.5 (4.3-11.1) K/mcL Hgb 9.2 L (11.5-15.4) g/dL Hct 30.8 L (35.3-44.9) % Plt Count 224 (140-400) K/mcL Neutrophils # 6.5 (1.6-8.9) K/mcL BMP 04/25/17 03:57 Sodium 138 Potassium 4.1 Chloride 108 H Carbon Dioxide 27 BUN 13 Creatinine 0.66 Glucose 112 H Calcium 7.9 L - ABG Interpretation ABG results: PT/INR, D-dimer PT 12.6 Seconds (9.4-12.1) H 04/24/17 06:06 - Impressions Impressions Hip X-Ray 04/24/17 17:25 IMPRESSION: 1. Status post pelon right hip arthroplasty. 2. No fracture. 3. No unexpected retained radiopaque foreign body. 4. Correlate with the procedural report. D/ / Ike Billy / Ike Billy Interpreting Provider: Ike Billy - VTE Documentation of Mechanical Device: Intermittent pneumatic compression device Consult Discharge Plan - Plan Referrals: Cipriano Walsh MD [Family Provider] - NONE,PCP [Primary Care Provider] -
--- NOTE | 2017-04-25 12:23 | Orthopedics Progress Note ---
Date of Encounter: 04/25/17 Time of Encounter: 12:21 - Assessment and Plan (1) Closed displaced fracture of right femoral neck Current Visit: Yes Status: Acute The patient will be scheduled for a right hip hemiarthroplasty. They proceeded details. Discussed the patient. The risks, benefits and alternatives were discussed. Informed consent was obtained. Subjective Principal diagnosis: Right hip fracture Interval history: Patient is sitting up in chair comfortably with no pain Dressings were partially soaked last night and change this morning Current dressings are clean and dry and intact Bilateral calves are soft and nontender Neurovascularly intact distally Assessment postop day #1 status post right total hip arthroplasty, doing well Patient was going to be bolused with normal saline for mild tachycardia Continue DVT prophylaxis continue PT/OT Discharge planning to rehabilitation Objective Vital signs: Vital Signs Temp Pulse Resp BP Pulse Ox 04/25/17 07:05 98.7 F 88 16 118/80 96 04/25/17 05:04 99.1 F 115 16 131/73 97 04/25/17 00:07 98.4 F 102 16 114/71 95 04/24/17 20:15 98.6 F 107 18 132/84 95 04/24/17 19:15 99.2 F 115 18 142/85 94 04/24/17 17:56 98.5 F 119 16 142/85 96 04/24/17 17:38 117 18 142/83 97 04/24/17 17:28 118 18 141/74 98 04/24/17 17:18 124 18 122/68 98 04/24/17 17:13 118 20 100/69 97 04/24/17 17:08 99.4 F 107 20 97/72 94 Intake and Output 04/24/17 04/25/17 04/25/17 23:59 07:59 15:59 Intake Total 50 / 50 1020 / 1020 Output Total 700 / 700 500 / 500 Balance -650 / -650 -500 / -500 1020 / 1020 Intake: IV Fluids 50 / 50 900 / 900 Lactated Ringers 1,000 ML @ 75 800 / 800 mls/hr IVC .[id number] JESSICA Rx#: [id number] Cleocin Premix 900 MG/50 ML 900 50 / 50 50 / 50 mg In 50 ml @ 50 mls/hr IVPB Q8H JESSICA Rx#:[id number] Oral 120 / 120 Output: Estimated Blood Loss 200 / 200 Urine Amount (Catheter) 500 / 500 Catheter 500 / 500 Other: Meal Breakfast Percent of Meal Consumed 100% # Voids 0 Weight 233.5 kg Patient Weight 04/25/17 23:59 Weight 233.5 kg - Labs CBC & BMP: 04/25/17 03:57 04/25/17 03:57 Labs: Abnormal lab results RBC 3.63 M/mcL (3.82-4.97) L 04/25/17 03:57 Hgb 9.2 g/dL (11.5-15.4) L 04/25/17 03:57 Hct 30.8 % (35.3-44.9) L 04/25/17 03:57 MCH 25.3 pg (28.0-33.3) L 04/25/17 03:57 MCHC 29.9 g/dL (31.6-35.5) L 04/25/17 03:57 Nucleated RBCs/100 WBC 0.2 /100 WBC (0) H 04/25/17 03:57 PT 12.6 Seconds (9.4-12.1) H 04/24/17 06:06 Chloride 108 mEq/L (98-107) H 04/25/17 03:57 Glucose 112 mg/dL (70-105) H 04/25/17 03:57 Calcium 7.9 mg/dL (8.6-10.3) L 04/25/17 03:57 - VTE Documentation of Mechanical Device: Intermittent pneumatic compression device Consult Discharge Plan - Plan Referrals: Cipriano Walsh MD [Family Provider] - NONE,PCP [Primary Care Provider] -
[2017-04-25] MEDS ORDERED: *HR* Enoxaparin 30 MG/0.3 ML SYRINGE SQ SCH (14:15)
[2017-04-25] MEDS: *HR* HYDROcodone/Acet 5/325 mg TABLET PO PRN (19:20)
[2017-04-26] MEDS: Temazepam 15 MG CAPSULE PO PRN ×2 (00:59→20:48)
[2017-04-26 05:24] LABS: Basophils % 0.4 %; Eosinophils # 0.2 K/mcL (0.0-0.6); Eosinophils % 2.9 %; Hematocrit 29.5 % (35.3-44.9); Immature Granulocytes % 0.3 % (0-4); Lymphocytes # 2.2 K/mcL (0.6-4.6); Lymphocytes % 27.4 %; Mean Corpuscular HGB Conc 30.5 g/dL (31.6-35.5); Mean Corpuscular Hemoglobin 25.5 pg (28.0-33.3); Mean Corpuscular Volume 83.6 fL (83.0-100.0); Mean Platelet Volume 12.3 fL (9.4-12.4); Monocytes # 1.1 K/mcL (0.0-1.3); Monocytes % 13.2 %; Neutrophils # 4.4 K/mcL (1.6-8.9); Platelet Count 213 K/mcL (140-400); Red Blood Count 3.53 M/mcL (3.82-4.97); Red Cell Distribution Width 14.4 % (11.5-14.5); Segmented Neutrophils % 55.8 %
[2017-04-26] MEDS: *HR* Enoxaparin 30 MG/0.3 ML SYRINGE SQ SCH ×2 (05:48→17:22)
[2017-04-26] MEDS: *HR* HYDROcodone/Acet 5/325 mg TABLET PO PRN (05:48)
[2017-04-26 06:16] LABS: BUN/Creatinine Ratio 25 (6-26); Blood Urea Nitrogen 15 mg/dL (8-23); Calcium 8.1 mg/dL (8.6-10.3); Carbon Dioxide 27 mEq/L (23-29); Chloride 108 mEq/L (98-107); Glucose 98 mg/dL (70-105); Osmolality,Calculated 291 (280-300); Potassium 4.1 mEq/L (3.5-5.1); Sodium 140 mEq/L (136-145); eGFR For African Americans > 60 (> 60); eGFR For Non-African Americans > 60 (> 60)
[2017-04-26] MEDS ORDERED: 0.9 % Sodium Chloride 1,000 ML IVC ONE (07:31)
[2017-04-26] MEDS: hydroCHLOROthiazide 25 MG TABLET PO SCH (08:19)
[2017-04-26] MEDS: Multivit/Ca/Min/Fe/FA 1 TAB TABLET PO SCH (08:20)
[2017-04-26] MEDS: Ascorbic Acid 500 MG TABLET PO SCH ×2 (08:20→17:22)
[2017-04-26] MEDS: Cholecalciferol (D-3) 1,000 UNIT TABLET PO SCH (08:20)
[2017-04-26] MEDS: Pregabalin 50 MG CAPSULE PO SCH ×3 (08:20→20:48)
--- NOTE | 2017-04-26 12:39 | Orthopedics Progress Note ---
Date of Encounter: 04/26/17 Time of Encounter: 12:20 - Assessment and Plan (1) Closed displaced fracture of right femoral neck Current Visit: Yes Status: Acute POD#1 s/p right hip hemiarthroplasty on 04/24/17 dressings to be changed before discharge. Continue with PT/OT, WBAT Ice to hip as needed. Pain control and DVT prophylaxis per hospitalist. Plan for DC to ECF possibly tomorrow per nurse. Will follow up in [facility] office with SHERRY Schulz-Cat POW#2. Subjective Principal diagnosis: POD#2 s/p right hip hemiarthroplasty on 04/24/17 Interval history: Patient doing well on exam, sitting in chair in eating lunch with no concerns other than her bilateral knee stiffness which she states is chronic. Denies any calf pain. Denies any new drainage from incision.. Pain well controlled at this time. Objective Vital signs: Vital Signs Temp Pulse Resp BP Pulse Ox 04/26/17 09:12 99.1 F 102 16 131/79 97 04/26/17 00:04 98.1 F 104 18 96/61 94 04/25/17 21:21 98.6 F 96 16 100/62 97 Intake and Output 04/25/17 04/26/17 04/26/17 23:59 07:59 15:59 Intake Total 120 / 120 Output Total 175 / 175 Balance 120 / 120 -175 / -175 Intake: Oral 120 / 120 Output: Urine 175 / 175 Other: Meal Dinner Percent of Meal Consumed 50% # Voids 2 Weight 104 kg Incision: clean and dry (dressings c/d/i with no visible drainage or surrounding erythema, no calf tenderness to palpation, good dorsiflexion of foot , grossly NV intact) - Labs CBC & BMP: 04/26/17 04:31 04/26/17 04:31 Labs: Abnormal lab results RBC 3.53 M/mcL (3.82-4.97) L 04/26/17 04:31 Hgb 9.0 g/dL (11.5-15.4) L 04/26/17 04:31 Hct 29.5 % (35.3-44.9) L 04/26/17 04:31 MCH 25.5 pg (28.0-33.3) L 04/26/17 04:31 MCHC 30.5 g/dL (31.6-35.5) L 04/26/17 04:31 Nucleated RBCs/100 WBC 0.2 /100 WBC (0) H 04/25/17 03:57 PT 12.6 Seconds (9.4-12.1) H 04/24/17 06:06 Chloride 108 mEq/L (98-107) H 04/26/17 04:31 Calcium 8.1 mg/dL (8.6-10.3) L 04/26/17 04:31 - VTE Documentation of Mechanical Device: Intermittent pneumatic compression device Consult Discharge Plan - Plan Referrals: Cipriano Walsh MD [Family Provider] - NONE,PCP [Primary Care Provider] -
--- NOTE | 2017-04-26 13:03 | Internal Med Progress Note ---
Date of Encounter: 04/26/17 Time of Encounter: 13:02 - Assessment and plan (1) Tachycardia Current Visit: Yes Status: Acute Assessment and plan: possibly driven by pain. Check an EKG. We will bolus 1 L in cases this is secondary to dehydration. (2) Transverse fracture of shaft of femur Current Visit: Yes Status: Acute Assessment and plan: c/w pain control. Orthopedics is following. Status post right hip hemiarthroplasty. Postoperative day #1. Continue physical therapy. Possible placement tomorrow Qualifiers: Encounter type: initial encounter Qualified Code(s): S72.324A - Nondisplaced transverse fracture of shaft of right femur, initial encounter for closed fracture (3) HTN (hypertension) Current Visit: Yes Status: Acute Assessment and plan: Continue with losartan Qualifiers: Hypertension type: essential hypertension Qualified Code(s): I10 - Essential (primary) hypertension (4) Mood disorder Current Visit: Yes Status: Acute Assessment and plan: Continue with BuSpar (5) DVT prophylaxis Current Visit: Yes Status: Acute Assessment and plan: Lovenox twice a day - Subjective Interval history: Patient seen and examined. Admitted with a right femur fracture. She is status post right hip hemiarthroplasty on 04/24. Heart rate means elevated. Otherwise she is hemodynamic stable. Pain is somewhat controlled. She does not remember exactly how it happened. She denies a fall or trauma. Significant afebrile. Lives with her and at baseline is independent of daily living activities. Denies any cardiac history. - Constitutional Vitals: Temp Pulse Resp BP Pulse Ox 98.1 F 101 16 168/77 97 04/26/17 12:47 04/26/17 12:47 04/26/17 12:47 04/26/17 12:47 04/26/17 12:47 General appearance: Present: A&O X 3, no acute distress, answers questions appropriately Exam: GEN: NAD CVS: RRR. S1, S2, No m/r/g RESP: CTAB ABD: Soft, NT, ND, +BS EXT: No edema. 2+ DP. No rashes NEURO: Nonfocal Internal Medicine: Result - Labs CBC & Chem 7: 04/26/17 04:31 04/26/17 04:31 Labs: Short CBC 04/26/17 Range/Units 04:31 WBC 7.9 (4.3-11.1) K/mcL Hgb 9.0 L (11.5-15.4) g/dL Hct 29.5 L (35.3-44.9) % Plt Count 213 (140-400) K/mcL Neutrophils # 4.4 (1.6-8.9) K/mcL BMP 04/26/17 04:31 Sodium 140 Potassium 4.1 Chloride 108 H Carbon Dioxide 27 BUN 15 Creatinine 0.61 Glucose 98 Calcium 8.1 L - ABG Interpretation ABG results: PT/INR, D-dimer PT 12.6 Seconds (9.4-12.1) H 04/24/17 06:06 - VTE Documentation of Mechanical Device: Intermittent pneumatic compression device Consult Discharge Plan - Plan Referrals: Cipriano Walsh MD [Family Provider] - NONE,PCP [Primary Care Provider] -
--- NOTE | 2017-04-26 16:40 | Electrocardiograph Report ---
[place] [id number] Test Date: 2017-04-26 Pat Name: Tg Mitchell Department: 114 Room: [facility] Gender: F Armed Custom Protection Officer: : 1955 Requested By: Miryam Fuchs Order Number: [id number] Reading MD: Lucia James Measurements Intervals [place] Rate: 103 P: 54 [place]: 109 QRS: -1 QRSD: 107 T: 33 QT: 338 QTc: 398 Interpretive Statements SINUS TACHYCARDIA WITH SHORT [place] INTERVAL ABNORMAL RHYTHM ECG Electronically Signed On 04-26-2017 16:39:05 EST by Lucia James
[2017-04-27] MEDS: *HR* Enoxaparin 30 MG/0.3 ML SYRINGE SQ SCH (05:18)
[2017-04-27] MEDS: *HR* HYDROcodone/Acet 5/325 mg TABLET PO PRN ×2 (05:21→12:14)
[2017-04-27 06:06] LABS: Basophils % 0.3 %; Eosinophils # 0.2 K/mcL (0.0-0.6); Eosinophils % 2.6 %; Hematocrit 28.1 % (35.3-44.9); Hemoglobin 8.6 g/dL (11.5-15.4); Immature Granulocytes % 0.3 % (0-4); Lymphocytes # 1.7 K/mcL (0.6-4.6); Lymphocytes % 21.5 %; Mean Corpuscular HGB Conc 30.6 g/dL (31.6-35.5); Mean Corpuscular Hemoglobin 25.9 pg (28.0-33.3); Mean Corpuscular Volume 84.6 fL (83.0-100.0); Mean Platelet Volume 12.1 fL (9.4-12.4); Monocytes % 12.6 %; Neutrophils # 4.9 K/mcL (1.6-8.9); Nucleated Red Blood Cells 0.3 /100 WBC (0); Platelet Count 205 K/mcL (140-400); Red Blood Count 3.32 M/mcL (3.82-4.97); Segmented Neutrophils % 62.7 %
[2017-04-27 06:22] LABS: BUN/Creatinine Ratio 19 (6-26); Blood Urea Nitrogen 9 mg/dL (8-23); Calcium 8.1 mg/dL (8.6-10.3); Carbon Dioxide 29 mEq/L (23-29); Chloride 107 mEq/L (98-107); Glucose 101 mg/dL (70-105); Osmolality,Calculated 289 (280-300); Potassium 3.8 mEq/L (3.5-5.1); Sodium 140 mEq/L (136-145); eGFR For African Americans > 60 (> 60); eGFR For Non-African Americans > 60 (> 60)
--- NOTE | 2017-04-27 07:31 | Discharge Summary ---
Date of Encounter: 04/27/17 Time of Encounter: 07:29 - Discharge Diagnosis (1) Tachycardia Priority: Primary Status: Acute (2) Transverse fracture of shaft of femur Priority: Primary Status: Acute Qualifiers: Encounter type: initial encounter Fracture type: closed Fracture alignment: displaced Laterality: right Qualified Code(s): S72.321A - Displaced transverse fracture of shaft of right femur, initial encounter for closed fracture (3) HTN (hypertension) Priority: Secondary Status: Acute Qualifiers: Hypertension type: essential hypertension Qualified Code(s): I10 - Essential (primary) hypertension (4) Mood disorder Priority: Secondary Status: Acute - Discharge Medications Prescriptions: Aspirin 325 mg PO BID #28 tablet HYDROcodone/Acet 5/325 mg [[place] 5-325 mg] 1 tab PO Q6H PRN 3 Days #12 tablet PRN Reason: Moderate Pain 4-6 Home Medications: Buspirone HCl [Buspar] 10 mg PO BID PRN 04/23/17 [History] Calcium Carb/Vitamin D3/Vit K1 [Calcium + D Soft Chewable Tab] 1 each PO DAILY 04/23/17 [History] Cholecalciferol (D-3) [Vitamin D] 1,000 unit PO DAILY 04/23/17 [History] Estrogens, Conjugated [Premarin] 0.625 mg PO DAILY 04/23/17 [History] Glucosamine/D3/Boswellia Vanesa [Osteo Bi-Flex Tablet] 1 each PO BID 04/23/17 [ History] Loratadine [Claritin] 10 mg PO DAILY 04/23/17 [History] Losartan/Hydrochlorothiazide [Hyzaar 100-12.5 Tablet] 1 each PO DAILY 04/23/17 [ History] Meloxicam [Mobic] 15 mg PO DAILY 04/23/17 [History] Paroxetine [Paxil] 30 mg PO HS 04/23/17 [History] Potassium Chloride [K-Tab ER] 20 meq PO TID 04/23/17 [History] Pregabalin [Lyrica] 100 mg PO TID 04/23/17 [History] Aspirin 325 mg PO BID #28 tablet 04/27/17 [Rx] HYDROcodone/Acet 5/325 mg [[place] 5-325 mg] 1 tab PO Q6H PRN 3 Days #12 tablet [Rx] Allergies/Adverse Reactions: 3 Allergy/AdvReac Type Severity Reaction Status Date / Time nitrofurantoin Allergy Anaphylaxis Verified 04/23/17 18:27 [From Macrobid] Penicillins [PCN] Allergy Anaphylaxis Verified 04/23/17 18:27 Procedures/tests Complete & Pending: Procedures Performed prior 72 hours Category Date Time Status EKG [ECG 12 lead ECG] [ECG] Stat Y 04/26/17 07:30 Completed Date of admission: 04/23/17 22:41 Primary care physician: PCP NONE Consults: 04/24/17 18:08 Consult to Nurse Navigator [CONS] Routine Comment: ortho navigator Consult to Occupational Therapy [CONS] Routine Comment: Evaluate, develop and implement POC Reason for Consult: total hip replacement Consult to Physical Therapy [CONS] Routine Comment: Evaluate, develop and implement POC Reason for Consult: total hip replacement Consult to Watch Leader [CONS] Routine Reason for SW Consult: post op joint replacement RT Post Op Consult [CONS] Routine - Patient Status Disposition: Transfer SNF Overall status at discharge: patient is progressing back to baseline - Discharge Instructions Follow Up With: Cipriano Walsh MD [Family Provider] - NONE,PCP [Primary Care Provider] - Romelia Hernandez PAC [Physician Appliance Painter And Refinisher] - (2 weeks) - Diet and Activity Activity: as per physical therapy Diet: low salt diet Hospital course: Ms. Mitchell is a 61 year old female with past medical history significant for hypertension and mood disorder who presented to the ER on 04/23/17 due to right groin pain. In the ER, CT of the pelvis showed transverse fracture of the mid femoral neck with a few mm distraction; the hip is otherwise in anatomic alignment and pelvic ring is otherwise intact. She did not report any fall or trauma. Orthopedics saw the patient and the patient was taken to the OR for right hip hemiarthroplasty. Her pain was controlled postoperatively. She is going to be discharged to rehabilitation on 04/27/2017 - Time Spent with Patient Total time spent providing and/or coordinating discharge services: Greater than 30 minutes - Constitutional Vitals: Temp Pulse Resp BP Pulse Ox 99.0 F 107 15 159/84 94 04/27/17 07:12 04/27/17 07:12 04/27/17 07:12 04/27/17 07:12 04/27/17 07:12 General appearance: Present: A&O X 3, no acute distress, answers questions appropriately Exam: GEN: NAD CVS: RRR. S1, S2, No m/r/g RESP: CTAB ABD: Soft, NT, ND, +BS EXT: No edema. 2+ DP. No rashes NEURO: Nonfocal - VTE Documentation of Mechanical Device: Intermittent pneumatic compression device
--- NOTE | 2017-04-27 07:32 | Physician Discharge Referral ---
ExtendedCare Referral Info Institutional Level of Care: Skilled - Diagnosis (1) Tachycardia Priority: Primary Status: Acute (2) Transverse fracture of shaft of femur Priority: Primary Status: Acute (3) HTN (hypertension) Priority: Secondary Status: Acute (4) Mood disorder Priority: Secondary Status: Acute - Transfer Medications Prescriptions: Aspirin 325 mg PO BID #28 tablet HYDROcodone/Acet 5/325 mg [[place] 5-325 mg] 1 tab PO Q6H PRN 3 Days #12 tablet PRN Reason: Moderate Pain 4-6 Home Medications: Buspirone HCl [Buspar] 10 mg PO BID PRN 04/23/17 [History] Calcium Carb/Vitamin D3/Vit K1 [Calcium + D Soft Chewable Tab] 1 each PO DAILY 04/23/17 [History] Cholecalciferol (D-3) [Vitamin D] 1,000 unit PO DAILY 04/23/17 [History] Estrogens, Conjugated [Premarin] 0.625 mg PO DAILY 04/23/17 [History] Glucosamine/D3/Boswellia Vanesa [Osteo Bi-Flex Tablet] 1 each PO BID 04/23/17 [ History] Loratadine [Claritin] 10 mg PO DAILY 04/23/17 [History] Losartan/Hydrochlorothiazide [Hyzaar 100-12.5 Tablet] 1 each PO DAILY 04/23/17 [ History] Meloxicam [Mobic] 15 mg PO DAILY 04/23/17 [History] Paroxetine [Paxil] 30 mg PO HS 04/23/17 [History] Potassium Chloride [K-Tab ER] 20 meq PO TID 04/23/17 [History] Pregabalin [Lyrica] 100 mg PO TID 04/23/17 [History] Aspirin 325 mg PO BID #28 tablet 04/27/17 [Rx] HYDROcodone/Acet 5/325 mg [[place] 5-325 mg] 1 tab PO Q6H PRN 3 Days #12 tablet [Rx] Allergies/Adverse Reactions: 3 Allergy/AdvReac Type Severity Reaction Status Date / Time nitrofurantoin Allergy Anaphylaxis Verified 04/23/17 18:27 [From Macrobid] Penicillins [PCN] Allergy Anaphylaxis Verified 04/23/17 18:27 - Respiratory Orders Smoking Cessation: Smoking cessation has been advised. For more information, call the [place] Tobacco Quit Line at 7-282-MUID-NOW. - Rehabiliation Orders Rehab Orders: Evaluation for Physical Therapy, Evaluation for Occupational Therapy - Diet Orders No Added Salt (VANESA) CERTIFICATION: I certify that the transfer of the above named patient to an Extended Care Facility is necessary for the continuing treatment of the diagnosis listed. The above information is true and accurate reflection of patient's current condition. Confidential - Redisclosure prohibited without a patient's written consent.
[2017-04-27] MEDS: hydroCHLOROthiazide 25 MG TABLET PO SCH (08:57)
[2017-04-27] MEDS: Multivit/Ca/Min/Fe/FA 1 TAB TABLET PO SCH (08:58)
[2017-04-27] MEDS: Cholecalciferol (D-3) 1,000 UNIT TABLET PO SCH (08:58)
[2017-04-27] MEDS: Pregabalin 50 MG CAPSULE PO SCH ×2 (08:58→15:04)
[2017-04-27] MEDS: Ascorbic Acid 500 MG TABLET PO SCH (08:58)
[2017-04-27 10:23] VITALS: BP 102/67
--- NOTE | 2017-04-27 18:33 | Electrocardiograph Report ---
[place] [id number] Test Date: 2017-04-23 Pat Name: Tg Mitchell Department: 103 Room: [facility] Gender: F Senior Security Analyst: ARAMIS : 1955 Requested By: Johnny Santos Order Number: [id number] Reading MD: Khoa Johnson MD Measurements Intervals [place] Rate: 90 P: 28 W[place]: 105 QRS: -12 QRSD: 97 T: -7 QT: 372 QTc: 420 Interpretive Statements SINUS RHYTHM WITH SHORT W[place] INTERVAL WITH OCCASIONAL VENTRICULAR PREMATURE COMPLEXES MINIMAL VOLTAGE CRITERIA FOR LVH, CONSIDER NORMAL VARIANT Electronically Signed On 04-27-2017 18:31:56 EST by Khoa Johnson MD
== END 2017-04-27 16:57 | DRG 470 ==
LOC: EMEROO 18:13 → 3NENU 18:13 → SUATTDRO 22:41
PROVIDERS: ADMIT Internal Medicine; ATTEND Hospitalist